=== PATIENT | female | born 1955 | race Hispanic/Latino ===

== ENCOUNTER 2018-01-16 12:39 | Inpatient (IN) | payer OTHER ==
--- NOTE | 2018-01-16 12:46 | PCM.RRT ---
SNOWBOARD INSTRUCTOR Nurses Assessment - Situation Date: 01/16/18 Time SNOWBOARD INSTRUCTOR was called: 12:30 SNOWBOARD INSTRUCTOR Responder Arrival Time:: 12:32 SNOWBOARD INSTRUCTOR Location:: Med/Oncology Room Number: 357B - IV IV Inserted during SNOWBOARD INSTRUCTOR?: No - Respiratory SNOWBOARD INSTRUCTOR Delivery Method: Room Air Received Nebulizer Treatments: No Was the Patient Ventilated with Bag/Mask 100% O2?: No Secretions Suctioned?: No Was the Patient Intubated?: No Was the Patient Placed on a Ventilator?: No - Medication Medications Administered During SNOWBOARD INSTRUCTOR: none - Diagnostic Test Ordered EKG: No Chest X-Ray: No CT Scan: No CPR started during SNOWBOARD INSTRUCTOR?: No - Tana Coma Scale Coma Scale Eye Opening: Spontaneous Coma Scale Motor: Obeys Commands Movement Coma Scale Verbal: Oriented Coma Scale Total: 15 - Recommendations 5) SNOWBOARD INSTRUCTOR Level of Care Recommendations: go to ER Notifications: Attending Physician I.Reason for SNOWBOARD INSTRUCTOR - A) Acute Change in Patient: (Select all that apply): Staff member or family is worried about patient - Neurological Status (Select all that apply): Alert, Responsive, Oriented, Verbal, Follows Commands - Respiratory Oxygen Delivery Method: Room Air - Constitutional Appears: Non-toxic, In Acute Distress - Head Head Exam: ATRAUMATIC - Eyes Eye Exam: EOMI - Respiratory Exam Respiratory Exam: Clear to Ausculation Bilateral, NORMAL BREATHING PATTERN. absent: Rales, Rhonchi, Wheezes - Cardiovascular Exam Cardiovascular Exam: REGULAR RHYTHM, +S1, +S2 - GI/Abdominal Exam GI & Abdominal Exam: Soft, Normal Bowel Sounds. absent: Tenderness - Neurological Exam Neurological Exam: Alert, Awake, CN II-XII Intact, Oriented x3 - Extremities Exam Extremities Exam: absent: Normal Inspection (left hip is internally rotated and exquisitely painful to palpation ) Plan - Assessment of Findings&Treatment Plan Patient is to go to ER Patient has dislocated this left hip before s/p total hip replacement; states pain feels exactly the same patient was brought down to the ER for further management of condition PMhx: None Meds: None Surgeries: Total hip replacement 12/27 to osteoarthritis; surgeons are in [facility] Allergies: None
[2018-01-16 14:22] LABS: BASO % 0.5 % (0.0-2.0); EOS % 0.5 % (0.0-4.0); HEMOGLOBIN 13.8 g/dL (11.0-16.0); LYMPH # 0.9 K/uL (1.0-4.3); LYMPH % 11.3 % (20.0-40.0); MEAN CELL VOLUME 86.5 fL (81.0-99.0); MEAN CORPUSCULAR HEMOGLOBIN 30.1 pg (27.0-31.0); MEAN CORPUSCULAR HGB CONC 34.8 g/dL (33.0-37.0); MEAN PLATELET VOLUME 7.9 fL (7.2-11.7); MONO # 0.4 K/uL (0.0-0.8); MONO % 4.2 % (0.0-10.0); NEUT # 6.9 K/uL (1.8-7.0); NEUT % 83.5 % (50.0-75.0); RBC 4.57 Mil/uL (3.80-5.20); WHITE BLOOD COUNT 8.3 K/uL (4.8-10.8)
[2018-01-16 14:43] LABS: ALB/GLOB RATIO 1.3 (1.0-2.1); ALBUMIN 4.6 g/dL (3.5-5.0); ALT/SGPT 25 U/L (9-52); AST/SGOT 25 U/L (14-36); BLOOD UREA NITROGEN 17 mg/dL (7-17); CALCIUM 9.6 mg/dl (8.6-10.4); GFR AFRICAN-AMERICAN > 60; GFR NON-AFRICAN AMERICAN > 60
--- NOTE | 2018-01-16 15:50 | RAD ---
PROCEDURE: Left Hip X-ray Radiographs. HISTORY: Pain. r/o dislocation. h/o b/l replacement COMPARISON: None. FINDINGS: BONES: No acute fracture. JOINTS: Status post bilateral total hip replacement. Left hip dislocation. SOFT TISSUES: Normal. OTHER FINDINGS: None. IMPRESSION: Left hip dislocation. Bilateral total hip replacement.
--- NOTE | 2018-01-16 16:47 | C.PDOC ---
History Of Present Illness Pt was upstairs visiting a patient in this hospital when she tried to push a chair causing dislocation of her prosthetic left hip. Denies fall or trauma. Time Seen by Provider: 01/16/18 13:44 Chief Complaint (Nursing): Hip Pain History Per: Patient Onset/Duration Of Symptoms: Sudden Onset (Just DRY WALL APPLICATOR) Current Symptoms Are (Timing): Still Present Severity: Moderate Additional History Per: Prior Records Past Medical History Reviewed: Historical Data, Nursing Documentation, Vital Signs Vital Signs: Last Vital Signs Temp 97.6 F 01/16/18 12:55 Pulse 96 H 01/16/18 17:39 Resp 16 01/16/18 17:39 BP 143/85 01/16/18 17:39 Pulse Ox 99 01/16/18 17:39 - Medical History PMH: Hypothyroidism Other Surgeries: b/l hip replacements Family History: States: Unknown Family Hx - Social History Hx Alcohol Use: No Hx Substance Use: No Review Of Systems Except As Marked, All Systems Reviewed And Found Negative. Constitutional: Negative for: Fever Cardiovascular: Negative for: Chest Pain Respiratory: Negative for: Shortness of Breath Gastrointestinal: Negative for: Abdominal Pain Musculoskeletal: Negative for: Neck Pain, Back Pain Skin: Negative for: Rash Neurological: Negative for: Weakness, Numbness Physical Exam - Physical Exam Appears: Non-toxic, No Acute Distress Skin: Normal Color, Warm, Dry, No Rash Head: Atraumatic, Normacephalic Eye(s): bilateral: Normal Inspection, PERRL, EOMI Neck: Normal ROM, Supple Cardiovascular: Rhythm Regular Respiratory: Normal Breath Sounds, No Accessory Muscle Use Gastrointestinal/Abdominal: Soft, No Tenderness Back: No CVA Tenderness, No Vertebral Tenderness Extremity: No Swelling, Other (Left hip dislocated) Extremity: Left: Limited ROM To Joint (Hip), Bilateral: Normal Color And Temperature Pulses: Left Dorsalis Pedis: Normal Neurological/Psych: Oriented x3, Normal Motor, Normal Sensation ED Course And Treatment - Laboratory Results Result Diagrams: 01/16/18 14:19 01/16/18 14:19 Lab Interpretation: No Acute Changes O2 Sat by Pulse Oximetry: 97 Pulse Ox Interpretation: Normal - Other Rad Left hip x-rays X-Ray: Viewed By Me, Read By Radiologist Interpretation: IMPRESSION: Left hip dislocation. Bilateral total hip replacement. - Physician Consult Information Physician Contacted: James Saul Outcome Of Conversation: He accepted pt on hospitalist service. Disposition Discussed With : Les Hale III Comment: He evaluated pt in the ED and wants pt admitted on hospitalist service. He is planning on surgery in the AM. Doctor Will See Patient In The: ED Counseled Patient/Family Regarding: Studies Performed, Diagnosis - Disposition Disposition: HOSPITALIZED Disposition Time: 18:12 Condition: STABLE - Clinical Impression Clinical Impression: Dislocation of internal left hip prosthesis
--- NOTE | 2018-01-16 18:18 | CP.PCM.CON ---
History of Present Illness - History of Present Illness History of Present Illness: ID: 62 yo female CC: Pain, deformity and restricted L hip ROM HPI:- pt presetns with severe pain andrestricted L hip ROM;Pt s/p bilateral THR presnts after traumatic dislocation L hip when pt was visiting a relative admitted and [facility]; she sat and twisted and noted a pop with severe pain and restricted ROM L hip. Xrays reveal a dislocated L THR construct with monolithic femoral stem(cmented) and noincemented acetabular component Past Patient History - Past Social History Smoking Status: Never Smoked - ENDOCRINE/METABOLIC Hx Hypothyroidism: Yes - PSYCHIATRIC Hx Substance Use: No - SURGICAL HISTORY Hx Surgeries: Yes Hx Joint Replacement: Yes (Bilateral Hip) Other/Comment: Lasix - ANESTHESIA Hx Anesthesia: Yes Hx Anesthesia Reactions: No Meds Allergies/Adverse Reactions: Allergies Allergy/AdvReac Type Severity Reaction Status Date / Time No Known Allergies Allergy Unverified 01/16/18 13:04 Physical Exam - Skin Additional comments: Physical exam Systemic exam- wn;l Musculoskekltal stance/gait- defrred pt with shortening and internal rotation L lower extremity N/V Intact pain controlled Results - Vital Signs Recent Vital Signs: Last Vital Signs Temp 97.6 F 01/16/18 12:55 Pulse 96 H 01/16/18 17:39 Resp 16 01/16/18 17:39 BP 143/85 01/16/18 17:39 Pulse Ox 99 01/16/18 17:39 - Labs Result Diagrams: 01/16/18 14:19 01/16/18 14:19 Labs: Laboratory Results - last 24 hr 01/16/18 01/16/18 01/16/18 14:19 14:19 14:19 WBC 8.3 RBC 4.57 Hgb 13.8 Hct 39.6 MCV 86.5 MCH 30.1 MCHC 34.8 RDW 13.0 Plt Count 282 MPV 7.9 Neut % (Auto) 83.5 H Lymph % (Auto) 11.3 L [facility] % (Auto) 4.2 Eos % (Auto) 0.5 Baso % (Auto) 0.5 Neut # (Auto) 6.9 Lymph # (Auto) 0.9 L [facility] # (Auto) 0.4 Eos # (Auto) 0.0 Baso # (Auto) 0.0 PT 11.0 INR 1.0 APTT 28 Sodium 136 Potassium 4.0 Chloride 94 L Carbon Dioxide 30 Anion Gap 16 BUN 17 Creatinine 0.7 Est GFR ( Amer) > 60 Est GFR (Non-Af Amer) > 60 Random Glucose 95 Calcium 9.6 Total Bilirubin 0.9 AST 25 ALT 25 Alkaline Phosphatase 53 Total Protein 8.0 Albumin 4.6 Globulin 3.4 Albumin/Globulin Ratio 1.3 - Impressions Impression: Imaging Xrasy- reveal dislocated L THR; monolithic femoral component/ nonce,mented acetabular componet ? evidence for poly wear Assessment & Plan - Assessment and Plan (Free Text) Assessment: A- dislocated L THR P admit to hospitalist- to OR AM for closed reduction dislocated L THR Pros cons risks and benefits of closed reduction discussed possibility of LATER REVISION discussed at length. possibility of nerve injury/recurrent instabi; lity, stiffness discussed with pt and her Patrice NO PROMISES/ GUARANTEES
[2018-01-16] MEDS ORDERED: Morphine 4 MG/ML VIAL IV PRN (20:19)
--- NOTE | 2018-01-16 20:27 | CP.PCM.HP ---
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 Patient was visiting a friend in [facility]. Patient was sitting on the bed, twisted her torso to help adjust the chair her friend was sitting in and felt her hip dislocate and had severe pain. Rapid response was called, hip xray was taken and showed dislocation, and patient was transferred to the ED. Patient states she has had 1 previous episode of left hip dislocation in 2011. She states she originally had bilateral THR in 2010 for chronic hip pain that became unbearable. Patient currently reports 10/10 pain in the left hip that extends beyond the knee and muscle spasms. Patient denies chest pain, shortness of breath, abdominal pain, nausea, vomiting, fevers , headaches, dizziness, right LE pain. PMD: Dr. Almazan ([facility]) PMHx: Marsia's disease, THR b/l SurgHx: b/l THR (2010), L hip dislocation (2011), lasix eye surgery (2015), bunionectomy (2005) FamHx: Mothr- Afib, DM, HTN, breast cancer; Sister- breast cancer SocHx: denies tobacco and drug use; socially drinks wine on weekends; lives with on [place], [place]; retired nurse. Allergies: NKDA Medications: Levothyroxine 137mcg- 1/2 tablet daily. Present on Admission - Present on Admission Any Indicators Present on Admission: No Review of Systems - Constitutional Constitutional: absent: Chills, Fever, Headache - EENT Eyes: absent: Change in Vision Ears: absent: Dizziness - Cardiovascular Cardiovascular: absent: Chest Pain, Dyspnea, Leg Edema, Palpitations - Respiratory Respiratory: absent: Cough, Dyspnea - Gastrointestinal Gastrointestinal: absent: Abdominal Pain, Constipation, Diarrhea, Nausea, Vomiting - Musculoskeletal Musculoskeletal: Deformity, Limited Range of Motion, Other (left hip dislocation , internally rotated, severe pain and muscle spasms) - Neurological Neurological: absent: Dizziness, Headaches Past Patient History - Past Social History Smoking Status: Never Smoked - ENDOCRINE/METABOLIC Hx Hypothyroidism: Yes - PSYCHIATRIC Hx Substance Use: No - SURGICAL HISTORY Hx Surgeries: Yes Hx Joint Replacement: Yes (Bilateral Hip) Other/Comment: Lasix - ANESTHESIA Hx Anesthesia: Yes Hx Anesthesia Reactions: No Meds Allergies/Adverse Reactions: Allergies Allergy/AdvReac Type Severity Reaction Status Date / Time No Known Allergies Allergy Unverified 01/16/18 13:04 Physical Exam - Head Exam Head Exam: ATRAUMATIC, NORMOCEPHALIC - Eye Exam Eye Exam: EOMI, Normal appearance, PERRL - ENT Exam ENT Exam: Mucous Membranes Moist - Respiratory Exam Respiratory Exam: Clear to Auscultation Bilateral, NORMAL BREATHING PATTERN. absent: Rales, Rhonchi, Wheezes, Respiratory Distress - Cardiovascular Exam Cardiovascular Exam: REGULAR RHYTHM, +S1, +S2 - GI/Abdominal Exam GI & Abdominal Exam: Normal Bowel Sounds, Soft. absent: Distended, Firm, Tenderness - Extremities Exam Additional comments: Left LE: internally rotated, limited ROM 2/2 pain; able to move toes; sensation intact; no bruising or skin changes noted; pedal pulses present; no edema Right LE: normal inspection, pedal pulses present, no edema - Neurological Exam Neurological exam: Alert, Oriented x3 - Psychiatric Exam Psychiatric exam: Normal Affect, Normal Mood - Skin Skin Exam: Dry, Intact, Normal Color, Warm Results - Vital Signs Recent Vital Signs: Last Vital Signs Temp 97.6 F 01/16/18 12:55 Pulse 106 H 01/16/18 20:14 Resp 16 01/16/18 20:14 BP 171/85 H 01/16/18 20:14 Pulse Ox 98 01/16/18 20:14 - Labs Result Diagrams: 01/16/18 14:19 01/16/18 14:19 Labs: Laboratory Results - last 24 hr 01/16/18 01/16/18 01/16/18 14:19 14:19 14:19 WBC 8.3 RBC 4.57 Hgb 13.8 Hct 39.6 MCV 86.5 MCH 30.1 MCHC 34.8 RDW 13.0 Plt Count 282 MPV 7.9 Neut % (Auto) 83.5 H Lymph % (Auto) 11.3 L [facility] % (Auto) 4.2 Eos % (Auto) 0.5 Baso % (Auto) 0.5 Neut # (Auto) 6.9 Lymph # (Auto) 0.9 L [facility] # (Auto) 0.4 Eos # (Auto) 0.0 Baso # (Auto) 0.0 PT 11.0 INR 1.0 APTT 28 Sodium 136 Potassium 4.0 Chloride 94 L Carbon Dioxide 30 Anion Gap 16 BUN 17 Creatinine 0.7 Est GFR ( Amer) > 60 Est GFR (Non-Af Amer) > 60 Random Glucose 95 Calcium 9.6 Total Bilirubin 0.9 AST 25 ALT 25 Alkaline Phosphatase 53 Total Protein 8.0 Albumin 4.6 Globulin 3.4 Albumin/Globulin Ratio 1.3 Assessment & Plan (1) Dislocation of internal left hip prosthesis Assessment and Plan: Hip Xray: Left hip dislocation; B/L THR Orthopedic surgery consulted, Dr. Hale. Patient scheduled for OR 01/17/18. NPO, no chemical anticoagulation. In the ED, Morphine and zofran given. Morphine 3mg IV Q3 prn for pain. Zofran 4mg IV Q6 prn for n/v. NS@75mls/hr Status: Acute (2) Marisa's disease Assessment and Plan: Home medication: Levothyroxine 137mcg PO daily, take 1/2 tablet daily. As per pharmacy, cannot cut 137mcg tablet. Starting Levothyroxine 75mg PO daily TSH/T4: f/u results Status: Acute (3) Prophylactic measure Assessment and Plan: Hold chemical anticoagulation for surgery Protonix 40mg PO daily Status: Acute <Zeke Reno P - Last Filed: 01/17/18 07:35> Results - Vital Signs Recent Vital Signs: Last Vital Signs Temp 98.4 F 01/17/18 06:10 Pulse 71 01/17/18 06:10 Resp 20 01/17/18 06:10 BP 123/73 01/17/18 06:10 Pulse Ox 96 01/17/18 06:10 - Labs Result Diagrams: 01/16/18 14:19 01/16/18 14:19 Labs: Laboratory Results - last 24 hr 01/16/18 01/16/18 01/16/18 14:19 14:19 14:19 WBC 8.3 RBC 4.57 Hgb 13.8 Hct 39.6 MCV 86.5 MCH 30.1 MCHC 34.8 RDW 13.0 Plt Count 282 MPV 7.9 Neut % (Auto) 83.5 H Lymph % (Auto) 11.3 L [facility] % (Auto) 4.2 Eos % (Auto) 0.5 Baso % (Auto) 0.5 Neut # (Auto) 6.9 Lymph # (Auto) 0.9 L [facility] # (Auto) 0.4 Eos # (Auto) 0.0 Baso # (Auto) 0.0 PT 11.0 INR 1.0 APTT 28 Sodium 136 Potassium 4.0 Chloride 94 L Carbon Dioxide 30 Anion Gap 16 BUN 17 Creatinine 0.7 Est GFR ( Amer) > 60 Est GFR (Non-Af Amer) > 60 Random Glucose 95 Calcium 9.6 Phosphorus 4.0 Magnesium 2.1 Total Bilirubin 0.9 AST 25 ALT 25 Alkaline Phosphatase 53 Total Protein 8.0 Albumin 4.6 Globulin 3.4 Albumin/Globulin Ratio 1.3 Blood Type Blood Type Confirm Antibody Screen 01/16/18 20:45 WBC RBC Hgb Hct MCV MCH MCHC RDW Plt Count MPV Neut % (Auto) Lymph % (Auto) [facility] % (Auto) Eos % (Auto) Baso % (Auto) Neut # (Auto) Lymph # (Auto) [facility] # (Auto) Eos # (Auto) Baso # (Auto) PT INR APTT Sodium Potassium Chloride Carbon Dioxide Anion Gap BUN Creatinine Est GFR ( Amer) Est GFR (Non-Af Amer) Random Glucose Calcium Phosphorus Magnesium Total Bilirubin AST ALT Alkaline Phosphatase Total Protein Albumin Globulin Albumin/Globulin Ratio Blood Type AB POSITIVE Blood Type Confirm AB POSITIVE Antibody Screen Negative Attending/Attestation - Attestation I have personally seen and examined this patient.: Yes I have fully participated in the care of the patient.: Yes I have reviewed all pertinent clinical information: Yes Notes (Text): Assessment * Left prosthetic hip dislocation with severe pain from spasm, for OR in am * h/o b/l hip replacement * h/o hypothyroidism Plan * Patient cleared for or, for closed or if needed open reduction with low risk * Pain control with bzd for spasm and morphine for pain * See orders for detail.
[2018-01-16] MEDS: Dextrose 5%/0.45% NS 1,000 ML IV SCH (21:02)
[2018-01-16 21:08] LABS: MAGNESIUM 2.1 mg/dL (1.6-2.3)
[2018-01-17] MEDS: Dextrose 5%/0.45% NS 1,000 ML IV SCH (00:03)
[2018-01-17] MEDS ORDERED: Levothyroxine 75 MCG TAB PO SCH (06:30)
[2018-01-17] MEDS ORDERED: Propofol 10 mg/ml Inj (20 ML) ONE (07:07)
[2018-01-17] MEDS ORDERED: Succinylcholine Chloride 20 mg/ml Syr (5 ml) IV ONE (07:08)
[2018-01-17] MEDS ORDERED: Rocuronium 10 mg/ml (10 ml) ONE (07:08)
[2018-01-17 07:24] LABS: BASO % 0.5 % (0.0-2.0); EOS # 0.1 K/uL (0.0-0.7); EOS % 1.3 % (0.0-4.0); LYMPH # 1.2 K/uL (1.0-4.3); LYMPH % 22.2 % (20.0-40.0); MEAN CELL VOLUME 84.8 fL (81.0-99.0); MEAN CORPUSCULAR HEMOGLOBIN 30.2 pg (27.0-31.0); MEAN CORPUSCULAR HGB CONC 35.6 g/dL (33.0-37.0); MEAN PLATELET VOLUME 8.1 fL (7.2-11.7); MONO # 0.5 K/uL (0.0-0.8); MONO % 8.2 % (0.0-10.0); NEUT # 3.8 K/uL (1.8-7.0); NEUT % 67.8 % (50.0-75.0); RBC 4.31 Mil/uL (3.80-5.20); WHITE BLOOD COUNT 5.6 K/uL (4.8-10.8)
[2018-01-17] MEDS ORDERED: Neostigmine Methylsulfate 3mg/3ml Syringe IV ONE ×2 (08:00→08:14)
--- NOTE | 2018-01-17 08:03 | PCM.SURG1 ---
Surgeon's Initial Post Op Note - Surgeon's Notes Surgeon: Geoffrey Adjuster Electrical Contacts: HAZEL Guajardo Type of Anesthesia: General Endo, MAC Anesthesia Administered By: DR Phil Mahajan Pre-Operative Diagnosis: Dislocated L THR Operative Findings: as above Post-Operative Diagnosis: as above Operation Performed: Closed reduction dislocated L THR. applx hip abduction splint. positioning of fluoro/interpretation of video images Specimen/Specimens Removed: N/A Estimated Blood Loss: EBL {In ML}: 0 Blood Products Given: N/A Drains Used: No Drains Post-Op Condition: Good Date of Surgery/Procedure: 01/17/18 Time of Surgery/Procedure: 07:15 (time in room 6:59/anesthesia indcution time 6: 59)
[2018-01-17 08:16] LABS: ALB/GLOB RATIO 1.4 (1.0-2.1); ALT/SGPT 14 U/L (9-52); AST/SGOT 25 U/L (14-36); BLOOD UREA NITROGEN 14 mg/dL (7-17); CALCIUM 9.1 mg/dl (8.6-10.4); GFR AFRICAN-AMERICAN > 60; GFR NON-AFRICAN AMERICAN > 60
[2018-01-17] MEDS ORDERED: HYDROmorphone 0.5 mg/0.5 ml ISec IVP PRN (08:36)
--- NOTE | 2018-01-17 09:02 | RAD ---
PROCEDURE: Left Hip X-ray Radiographs. HISTORY: s/p closed reduction dislocated THR COMPARISON: 01/16/2018 FINDINGS: BONES: No acute fracture. JOINTS: Left hip arthroplasty. Status post successful close reduction of previously demonstrated dislocation of left hip. SOFT TISSUES: Normal. OTHER FINDINGS: None. IMPRESSION: Successful close reduction left hip dislocation. .
[2018-01-17] MEDS ORDERED: Pantoprazole 40 mg EC Tab PO SCH (10:00)
--- NOTE | 2018-01-17 10:07 | RAD ---
PROCEDURE: Intraoperative fluoroscopy HISTORY: DISLOCATION LT. HIP COMPARISON: Not available TECHNIQUE: Intraoperative fluoroscopy was provided for close reduction of left hip dislocation. Total time of fluoroscopy was 9.8 seconds. FINDINGS: Five fluoroscopic spot films are submitted. IMPRESSION: Fluoroscopy provided.
--- NOTE | 2018-01-17 10:35 | CP.PCM.DIS ---
<Zaira Acosta - Last Filed: 01/17/18 10:31> Provider - Provider Date of Admission: 01/16/18 18:13 Attending physician: Zeke Reno MD Consults: Dr. Hale Time Spent in preparation of Discharge (in minutes): 35 Hospital Course - Lab Results Lab Results: Most Recent Lab Values WBC 5.6 K/uL (4.8-10.8) 01/17/18 06:55 RBC 4.31 Mil/uL (3.80-5.20) 01/17/18 06:55 Hgb 13.0 g/dL (11.0-16.0) 01/17/18 06:55 Hct 36.5 % (34.0-47.0) 01/17/18 06:55 MCV 84.8 fL (81.0-99.0) 01/17/18 06:55 MCH 30.2 pg (27.0-31.0) 01/17/18 06:55 MCHC 35.6 g/dL (33.0-37.0) 01/17/18 06:55 RDW 13.0 % (11.5-14.5) 01/17/18 06:55 Plt Count 257 K/uL (130-400) 01/17/18 06:55 MPV 8.1 fL (7.2-11.7) 01/17/18 06:55 Neut % (Auto) 67.8 % (50.0-75.0) 01/17/18 06:55 Lymph % (Auto) 22.2 % (20.0-40.0) 01/17/18 06:55 Florence % (Auto) 8.2 % (0.0-10.0) 01/17/18 06:55 Eos % (Auto) 1.3 % (0.0-4.0) 01/17/18 06:55 Baso % (Auto) 0.5 % (0.0-2.0) 01/17/18 06:55 Neut # (Auto) 3.8 K/uL (1.8-7.0) 01/17/18 06:55 Lymph # (Auto) 1.2 K/uL (1.0-4.3) 01/17/18 06:55 Florence # (Auto) 0.5 K/uL (0.0-0.8) 01/17/18 06:55 Eos # (Auto) 0.1 K/uL (0.0-0.7) 01/17/18 06:55 Baso # (Auto) 0.0 K/uL (0.0-0.2) 01/17/18 06:55 PT 11.0 SECONDS (9.7-12.2) 01/16/18 14:19 INR 1.0 01/16/18 14:19 APTT 28 SECONDS (21-34) 01/16/18 14:19 Sodium 135 mmol/L (132-148) 01/17/18 06:55 Potassium 3.9 mmol/L (3.6-5.2) 01/17/18 06:55 Chloride 98 mmol/L (98-107) 01/17/18 06:55 Carbon Dioxide 26 mmol/L (22-30) 01/17/18 06:55 Anion Gap 15 (10-20) 01/17/18 06:55 BUN 14 mg/dL (7-17) 01/17/18 06:55 Creatinine 0.8 mg/dL (0.7-1.2) 01/17/18 06:55 Est GFR ( Amer) > 60 01/17/18 06:55 Est GFR (Non-Af Amer) > 60 01/17/18 06:55 Random Glucose 93 mg/dL (65-105) 01/17/18 06:55 Calcium 9.1 mg/dl (8.6-10.4) 01/17/18 06:55 Phosphorus 4.0 mg/dL (2.5-4.5) 01/16/18 14:19 Magnesium 2.1 mg/dL (1.6-2.3) 01/16/18 14:19 Total Bilirubin 0.9 mg/dL (0.2-1.3) 01/17/18 06:55 AST 25 U/L (14-36) 01/17/18 06:55 ALT 14 U/L (9-52) 01/17/18 06:55 Alkaline Phosphatase 44 U/L (38-126) 01/17/18 06:55 Total Protein 6.9 g/dL (6.3-8.3) 01/17/18 06:55 Albumin 4.0 g/dL (3.5-5.0) 01/17/18 06:55 Globulin 2.9 gm/dL (2.2-3.9) 01/17/18 06:55 Albumin/Globulin Ratio 1.4 (1.0-2.1) 01/17/18 06:55 Free T4 0.96 ng/dL (0.78-2.19) 01/17/18 06:55 TSH 3rd Generation 6.54 mIU/L (0.46-4.68) H 01/17/18 06:55 Blood Type AB POSITIVE 01/16/18 20:45 Blood Type Confirm AB POSITIVE 01/16/18 20:45 Antibody Screen Negative 01/16/18 20:45 - Hospital Course Hospital Course: Upon admission: Patient is a 62 year old female with a 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 Patient was visiting a friend in [facility]. Patient was sitting on the bed, twisted her torso to help adjust the chair her friend was sitting in and felt her hip dislocate and had severe pain. Rapid response was called, hip xray was taken and showed dislocation, and patient was transferred to the ED. Patient states she has had 1 previous episode of left hip dislocation in 2011. She states she originally had bilateral THR in 2010 for chronic hip pain that became unbearable. Patient currently reports 10/10 pain in the left hip that extends beyond the knee and muscle spasms. Patient denies chest pain, shortness of breath, abdominal pain, nausea, vomiting, fevers , headaches, dizziness, right LE pain. Hospital course: Patient was admitted to have hip dislocation reduced by Dr. Hale. Patient was taken to the OR this morning and procedure was done without complications. Patient safe for discharge per Dr. Hale after she sees PT today. She will need to wear a brace for discharge until she can follow up with him in his office. Please note that this is a summary of events. For more details, please see complete medical record. Discharge Exam - Head Exam Head Exam: ATRAUMATIC, NORMOCEPHALIC - Eye Exam Eye Exam: EOMI - ENT Exam ENT Exam: Mucous Membranes Moist - Respiratory Exam Respiratory Exam: Clear to PA & Lateral, NORMAL BREATHING PATTERN, UNREMARKABLE - Cardiovascular Exam Cardiovascular Exam: RRR, +S1, +S2 - GI/Abdominal Exam GI & Abdominal Exam: Normal Bowel Sounds, Soft, Unremarkable - Extremities Exam Extremities exam: normal capillary refill, normal inspection, pedal pulses present - Neurological Exam Neurological exam: Alert, Oriented x3 - Psychiatric Exam Psychiatric exam: Normal Affect, Normal Mood - Skin Skin Exam: Dry, Intact, Normal Color, Warm Discharge Plan - Follow Up Plan Condition: STABLE Disposition: HOME/ ROUTINE Instructions: Hip Abduction Brace Additional Instructions: Please follow up with Dr. Hale in 1 week. Please go home with brace per Dr. Hale. Referrals: Les Hale III, MD [Staff Provider] - <Matt Hermosillo - Last Filed: 01/17/18 16:15> Provider - Provider Date of Admission: 01/16/18 18:13 Attending physician: Zeke Reno MD Hospital Course - Lab Results Lab Results: Most Recent Lab Values WBC 5.6 K/uL (4.8-10.8) 01/17/18 06:55 RBC 4.31 Mil/uL (3.80-5.20) 01/17/18 06:55 Hgb 13.0 g/dL (11.0-16.0) 01/17/18 06:55 Hct 36.5 % (34.0-47.0) 01/17/18 06:55 MCV 84.8 fL (81.0-99.0) 01/17/18 06:55 MCH 30.2 pg (27.0-31.0) 01/17/18 06:55 MCHC 35.6 g/dL (33.0-37.0) 01/17/18 06:55 RDW 13.0 % (11.5-14.5) 01/17/18 06:55 Plt Count 257 K/uL (130-400) 01/17/18 06:55 MPV 8.1 fL (7.2-11.7) 01/17/18 06:55 Neut % (Auto) 67.8 % (50.0-75.0) 01/17/18 06:55 Lymph % (Auto) 22.2 % (20.0-40.0) 01/17/18 06:55 Florence % (Auto) 8.2 % (0.0-10.0) 01/17/18 06:55 Eos % (Auto) 1.3 % (0.0-4.0) 01/17/18 06:55 Baso % (Auto) 0.5 % (0.0-2.0) 01/17/18 06:55 Neut # (Auto) 3.8 K/uL (1.8-7.0) 01/17/18 06:55 Lymph # (Auto) 1.2 K/uL (1.0-4.3) 01/17/18 06:55 Florence # (Auto) 0.5 K/uL (0.0-0.8) 01/17/18 06:55 Eos # (Auto) 0.1 K/uL (0.0-0.7) 01/17/18 06:55 Baso # (Auto) 0.0 K/uL (0.0-0.2) 01/17/18 06:55 PT 11.0 SECONDS (9.7-12.2) 01/16/18 14:19 INR 1.0 01/16/18 14:19 APTT 28 SECONDS (21-34) 01/16/18 14:19 Sodium 135 mmol/L (132-148) 01/17/18 06:55 Potassium 3.9 mmol/L (3.6-5.2) 01/17/18 06:55 Chloride 98 mmol/L (98-107) 01/17/18 06:55 Carbon Dioxide 26 mmol/L (22-30) 01/17/18 06:55 Anion Gap 15 (10-20) 01/17/18 06:55 BUN 14 mg/dL (7-17) 01/17/18 06:55 Creatinine 0.8 mg/dL (0.7-1.2) 01/17/18 06:55 Est GFR ( Amer) > 60 01/17/18 06:55 Est GFR (Non-Af Amer) > 60 01/17/18 06:55 Random Glucose 93 mg/dL (65-105) 01/17/18 06:55 Calcium 9.1 mg/dl (8.6-10.4) 01/17/18 06:55 Phosphorus 4.0 mg/dL (2.5-4.5) 01/16/18 14:19 Magnesium 2.1 mg/dL (1.6-2.3) 01/16/18 14:19 Total Bilirubin 0.9 mg/dL (0.2-1.3) 01/17/18 06:55 AST 25 U/L (14-36) 01/17/18 06:55 ALT 14 U/L (9-52) 01/17/18 06:55 Alkaline Phosphatase 44 U/L (38-126) 01/17/18 06:55 Total Protein 6.9 g/dL (6.3-8.3) 01/17/18 06:55 Albumin 4.0 g/dL (3.5-5.0) 01/17/18 06:55 Globulin 2.9 gm/dL (2.2-3.9) 01/17/18 06:55 Albumin/Globulin Ratio 1.4 (1.0-2.1) 01/17/18 06:55 Free T4 0.96 ng/dL (0.78-2.19) 01/17/18 06:55 TSH 3rd Generation 6.54 mIU/L (0.46-4.68) H 01/17/18 06:55 Blood Type AB POSITIVE 01/16/18 20:45 Blood Type Confirm AB POSITIVE 01/16/18 20:45 Antibody Screen Negative 01/16/18 20:45 Attending/Attestation - Attestation I have personally seen and examined this patient.: Yes I have fully participated in the care of the patient.: Yes I have reviewed all pertinent clinical information, including history, physical exam and plan: Yes Notes (Text): 01/17/18 16:15 Medical attending: This is a very nice 62-year-old female who has a history of bilateral total hip replacement. She was coming to the third floor of the hospital yesterday to visit a friend of hers who is a patient in the hospital. While in the room she was sitting with her friend and was trying to help her friend who summoned the furniture in the room and unfortunately she felt severe pain in her left hip and could not move. She explains to us that she didn't hear any popping sensation that she felt a large movement occurring her hip and there on just could not move her left leg and x-rays were done in the emergency room showing that she did in fact have a dislocation. She's had one dislocation of the left hip before in the left side This morning she went to the OR and had reduction of the dislocated hip by orthopedics. She says that she is very happy with the reduction. She's able to lift her legs. She is able to bend her knees. She says she has full sensation in the lower extremity. She reports that feels warm and has full sensation. She understands that she needs to follow-up with orthopedics. Patient be discharged some time Thank you very much, Matt Hermosillo
[2018-01-17 11:15] VITALS: BP 126/73; PULSE 76; RESP 20; TEMP 98; O2SAT 97
--- NOTE | 2018-01-17 13:41 | CARD ---
APPROVED REPORT EKG Measurement Heart [id number] <Conclusion> Sinus rhythm with marked sinus arrhythmia Possible Left atrial enlargement Borderline ECG
--- NOTE | 2018-01-18 04:54 | OP ---
PROCEDURE DATE: 01/17/2018 PREOPERATIVE DIAGNOSIS: Dislocated left total hip replacement. POSTOPERATIVE DIAGNOSIS: Dislocated left total hip replacement. PROCEDURE: 1. Closed reduction, dislocated left total hip replacement with manipulation. 2. Positioning of fluoroscope, interpretation of video images. 3. Application of hip abduction brace. SURGEON: Les Hale MD HUMAN RELATIONS PROFESSOR: JORGE Ward TYPE OF ANESTHESIA: General endotracheal anesthesia. ANESTHESIA ADMINISTERED BY: Dr. Rakesh Mahajan. COMPLICATIONS: No complications. DRAINS: Obviously, no drains. ESTIMATED BLOOD LOSS: No blood loss. OPERATIVE INDICATIONS: Munira De La Cruz is a 62-year-old woman who had undergone a cemented left total hip replacement seven years ago. The patient has already had one dislocation. The patient was visiting a relative or a friend at [facility] and sustained a dislocation while sitting at the bedside. The patient presented to the emergency room with pain, restricted range of motion of the left hip. X-rays were accomplished. Physical examination was accomplished. I consulted the patient. Pros, cons, risks, and benefits of various scenarios were discussed: Possibility of closed reduction and immobilization, possibility of open reduction and polyethylene exchange discussed. Possibility of revision total hip replacement was discussed at length as well. The patient unfortunately has a Monolithic cemented stem. The possibility of open reduction and revision is discussed at length as well. 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 DESCRIPTION OF PROCEDURE: After having obtaining informed consent in the above fashion, after having identified the side, site, and procedure, and a critical pause/time-out, after the satisfactory induction of general endotracheal anesthesia by Dr. Mahajan, the patient identified as Munira De La Cruz in the supine position with all bony prominences well padded. Under the surgeon's direction, the fluoroscope was positioned. Video images were generated and therapeutic decisions were made therefrom. The patient was found to have a dislocated Charnley stem with noncemented cup. Under the surgeon's direction, the fluoroscope was positioned. Video images were generated and therapeutic decisions were made therefrom. The hip was evaluated. The therapeutic decision for closed reduction was accomplished. With the assistance stabilizing the pelvis, the surgeon and myself stands on the operating table and the hip was reduced with external rotation, flexion and internal rotation. After several attempts, the hip reduced, verification of position is offered on AP and frog lateral image intensification views. A hip abduction splint was applied. Neurocirculatory status intact in recovery. The postoperative treatment course was discussed at length with the patient's . Les Hale MD
== END 2018-01-17 12:53 | disposition home or self-care (01) | DRG 561 ==
LOC: C.ER 12:39 → C.9E 18:13 → C.6T 22:18
PROVIDERS: ADMIT Internal Medicine; ATTEND Internal Medicine
PROC: 0SWBXJZ Revision of Synthetic Substitute in Left Hip Joint, External Approach (ICD-10-PCS; principal; 2018-01-17 07:00)
DX: T84.021A Dislocation of internal left hip prosthesis, initial encounter (principal); E06.3 Autoimmune thyroiditis; Y79.2 Prosthetic and other implants, materials and accessory orthopedic devices associated with adverse incidents; Z96.643 Presence of artificial hip joint, bilateral